=== PATIENT | female | born 1955 | race Caucasian/White ===

== ENCOUNTER 2021-05-05 14:34 | Emergency (ER) | payer MEDICARE, OTHER ==
[2021-05-05 17:34] LABS: BASOPHIL 0.7 % (0-2); EOSINOPHIL 1.7 % (0-7); HCT 47.2 % (37.0-47.0); LYMPHOCYTE 39.3 % (15-48); MCH 27.7 pg (25.0-31.0); MCHC 31.8 g/dL (32.0-36.0); MCV 87.1 fL (78.0-100.0); MONOCYTE 8.2 % (0-12); MPV 10.5 fL (6.0-9.5); NRBC 0; PLT 219 K/uL (150-400); RBC 5.42 M/uL (4.20-5.40); WBC 7.5 K/uL (4.0-10.5)
[2021-05-05 17:42] LABS: BUN/CREAT RATIO (CALC) 18.8 RATIO; CREATININE 1.01 mg/dL (0.51-0.95); POTASSIUM 4.1 mmol/L (3.5-5.1)
[2021-05-05] MEDS ORDERED: MEDROL 4MG DOSEP4 MG PO (18:41)
[2021-05-05] MEDS ORDERED: VENTOLIN HFA IN18 GM INH (18:41)
[2021-05-05] MEDS ORDERED: AUGMENTIN 875-1 EACH PO (18:41)
== END 2021-05-05 18:53 | disposition home or self-care (01) ==
LOC: FER 14:34
PROVIDERS: Nurse Practitioner Family
DX: J06.9 Acute upper respiratory infection, unspecified (principal); E11.9 Type 2 diabetes mellitus without complications
CPT/HCPCS: 36415; 71045; 80048; 85025